=== PATIENT | male | born 1990 | race Asian ===

== ENCOUNTER 2018-04-28 20:05 | Emergency (ER) | payer BC ==
[~2018-04-28] VITALS: Ht 172.7 cm; Wt 70.3 kg
[2018-04-28 20:15] VITALS: Ht 172.7 cm; Wt 70.3 kg
[2018-04-28 21:12] VITALS: BP 111/78
== END 2018-04-28 21:12 | disposition home or self-care (01) ==
LOC: ED 20:05
DX: K64.4 Residual hemorrhoidal skin tags (principal)